=== PATIENT | female | born 1955 | race Caucasian/White ===

== ENCOUNTER → 2020-04-27 | Outpatient (CLI) | payer MEDICARE, OTHER | LOC: MRI 12:52 | DX: E23.6 Other disorders of pituitary gland (principal); H53.9 Unspecified visual disturbance | CPT/HCPCS: 70553; A9577 ==

== ENCOUNTER → 2020-10-31 | Outpatient (CLI) | payer MEDICARE | LOC: US 16:30 | DX: M79.605 Pain in left leg (principal); M79.89 Other specified soft tissue disorders; M17.12 Unilateral primary osteoarthritis, left knee | CPT/HCPCS: 73562; 93971 ==